=== PATIENT | male | born 1980 | race Caucasian/White ===

== ENCOUNTER 2020-05-02 15:59 | Emergency (ER) | payer OTHER ==
[~2020-05-02] VITALS: Ht 182.9 cm; Wt 61.2 kg
[~2020-05-02 15:59] MED LIST: IBUP-30; SILVADENE
[2020-05-02] MEDS ORDERED: TETANUS,DIPTH,PERTUSS P/F (BOOSTRIX) 0.5 ML VIAL IM ONE (16:15)
[2020-05-02] MEDS ORDERED: AUGMENTIN 875 MG TAB (AMOXICILLIN/CLAVULANATE) PO SCH (16:15)
--- NOTE | 2020-05-02 16:20 | NUR ---
Pt declined radiology.
[2020-05-02] MEDS ORDERED: AMOX-358 PO (16:25)
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
[2020-05-02 16:45] VITALS: BP 139/108
--- OUTSIDE RECORDS SUMMARY | 2020-05-02 23:35 | XMS REPORT | Continuity of Care Document ---
Demographics Address [address] [place] [address] x Preferred Language Unknown Marital Status Unknown Mandaeism Affiliation Unknown Race Unknown Ethnic Group Unknown Author Organization Unknown Address Unknown Phone Unavailable Allergies Active Description Code Type Severity Reaction Onset Reported/Identified Relationship to Patient Clinical Status Yes No Known Drug Allergies [id number] Drug Allergy Unknown N/A 02/03/2011 Medications There is no data. Problems There is no data. Procedures There is no data. Results There is no data. Encounters ACCT No. Visit Date/Time Discharge Status Pt. Type Provider Facility Loc./Unit Complaint [id number] 05/02/2020 16:01:00 020 16:45:00 DIS Emergency VAL NEGRO APRN Via [facility] ER LAC ALL OVER
== END 2020-05-02 16:45 | disposition home or self-care (01) ==
LOC: EDUNIT# 15:59 → ER 16:01
DX: S01.01XA Laceration without foreign body of scalp, initial encounter (principal); S21.219A Laceration without foreign body of unspecified back wall of thorax without penetration into thoracic cavity, initial encounter; F17.210 Nicotine dependence, cigarettes, uncomplicated; Z90.5 Acquired absence of kidney; Z90.81 Acquired absence of spleen; Z23 Encounter for immunization; V89.2XXA Person injured in unspecified motor-vehicle accident, traffic, initial encounter
CPT/HCPCS: 12001; 90715

== ENCOUNTER 2020-05-09 10:11 | Emergency (ER) | payer OTHER ==
[~2020-05-09] VITALS: Ht 182.8 cm; Wt 72.7 kg
[~2020-05-09 10:11] MED LIST changes: +AMOX-358 PO
[2020-05-09 10:31] VITALS: BP 138/93
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
== END 2020-05-09 10:30 | disposition home or self-care (01) ==
LOC: EDUNIT# 10:11 → ER 10:12
DX: S01.01XD Laceration without foreign body of scalp, subsequent encounter (principal); X58.XXXD Exposure to other specified factors, subsequent encounter